=== PATIENT | male | born 1970 | race Caucasian/White ===

== ENCOUNTER 2019-06-29 02:20 | Observation (INO) | payer OTHER ==
[~2019-06-29] VITALS: Ht 177.8 cm; Wt 104.5 kg
[2019-06-29] MEDS ORDERED: TRAMADOL HYDROC50 MG PO ×2 (03:10→03:14)
[2019-06-29] MEDS ORDERED: ZESTRIL10 M1 PO ×2 (03:18→03:56)
[2019-06-29 03:48] LABS: HEMATOCRIT 31.1 % (39.0-50.0); HEMOGLOBIN 10.8 g/dl (14.0-18.0); IMMATURE GRANULOCYTES 0.5 % (0.0-5.0); MEAN CELL VOLUME 92.8 fL CALC (80.0-100.0); MEAN CORPUSCULAR HGB 32.2 pG CALC (26.0-32.0); MEAN CORPUSCULAR HGB CONC 34.7 g/L CALC (32.0-36.0); NEUT# 3.21 thou/uL (1.82-7.42); RED BLOOD COUNT 3.35 mill/uL (4.70-6.10); RED CELL DISTRI WIDTH 14.2 % (11.5-15.5)
[2019-06-29 03:55] LABS: ALBUMIN 4.2 g/dL (3.2-5.0); ALKALINE PHOSPHATASE 141 u/l (38-126); AMYLASE 48 u/l (30-110); ANION GAP 13 (6-22 (CALC)); BILIRUBIN, TOTAL 0.5 mg/dL (0.0-1.4); BUN 18 mg/dL (9-20); BUN/CREATININE RATIO 20 (12-20 (CALC)); CARBON DIOXIDE 24 mmol/l (22-30); CHLORIDE 104 mmol/l (95-108); CREATININE 0.9 mg/dL (0.7-1.3); GFR > 60 ML/MIN (>=60 (CALC)); GFR FOR AFR.AMER. > 60 ML/MIN (>=60 (CALC)); LIPASE 62 u/l (23-300); SGOT/AST 24 u/l (17-59); SODIUM 138 mmol/l (137-146); TOTAL PROTEIN 7.6 g/dL (6.3-8.2)
[2019-06-29] MEDS ORDERED: NOVOLIN 70/30 F1 INJ SC (03:59)
[2019-06-29] MEDS ORDERED: CLARITIN10 M2 PO (04:05)
[2019-06-29 04:08] LABS: MYOGLOBIN 58 ng/mL (0 - 121)
[2019-06-29] MEDS ORDERED: GABAPENTIN250 MG/5 M PO (04:08)
[2019-06-29] MEDS ORDERED: ECOTRIN LOW STR81 MG PO (04:09)
[2019-06-29] MEDS ORDERED: HYDROCHLOROT12.5 MG PO (04:10)
[2019-06-29] MEDS ORDERED: METFORMIN1000 MG PO (04:13)
[2019-06-29] MEDS ORDERED: NIFEDIPINE ER60 MG PO (04:15)
[2019-06-29] MEDS ORDERED: GLIPIZIDE10 MG PO (04:16)
[2019-06-29] MEDS ORDERED: CARVEDILOL25 MG PO (04:17)
[2019-06-29] MEDS ORDERED: LOPID600 MG PO (04:17)
[2019-06-29] MEDS ORDERED: CARBAMAZEPIN200 M2 PO (04:18)
[2019-06-29] MEDS ORDERED: LAMICTAL100 M1 PO (04:19)
[2019-06-29] MEDS ORDERED: DIPHENHYDRAM50 M2 PO (04:20)
[2019-06-29] MEDS ORDERED: SERTRALINE100 MG PO (04:21)
[2019-06-29] MEDS ORDERED: BUSPIRONE15 MG PO (04:23)
[2019-06-29 04:43] LABS: URINE BILIRUBIN - DIPSTICK SMALL (NEGATIVE); URINE BLOOD DIPSTICK TRACE-INTACT (NEGATIVE); URINE COLOR YELLOW; URINE GLUCOSE - DIPSTICK 100 mg/dL (NEGATIVE); URINE KETONE TRACE mg/dL (NEGATIVE); URINE LEUK ESTERASE NEGATIVE (NEGATIVE); URINE NITRITE - DIPSTICK NEGATIVE (Negative); URINE PH 5.5 (4.5-8.0); URINE PROTEIN - DIPSTICK >=300 mg/dL (NEG-TRACE); URINE SPECIFIC GRAVITY 1.025; URINE UROBILINOGEN - DIPSTICK 0.2 E.U./dL (0.2)
[2019-06-29 04:44] LABS: URINE EPITHELIAL CELLS FEW EPI/hpf (0-FEW); URINE MUCUS MODERATE hpf (NONE-FEW); URINE RBC 0-2 RBC/hpf (0-5)
[2019-06-29 04:45] LABS: BARBITURATES NEGATIVE (NEGATIVE); COCAINE NEGATIVE (NEGATIVE); METHADONE NEGATIVE (NEGATIVE); OXCYCODONE NEGATIVE (NEGATIVE); TETRAHYDROCANNABIONOL NEGATIVE (NEGATIVE)
[2019-06-29 04:52] LABS: TRICYLIC ANTIDEPRESSANTS POSITIVE (NEGATIVE)
[2019-06-29 07:40] VITALS: BP 166/66
[2019-06-29 11:26] VITALS: BP 151/88
[2019-06-29 14:35] VITALS: BP 194/111
[2019-06-29 19:37] VITALS: BP 204/110
[2019-06-30 00:54] VITALS: BP 156/93
[2019-06-30 03:42] VITALS: BP 144/87
[2019-06-30 07:36] VITALS: BP 141/88
[2019-06-30 11:25] VITALS: BP 113/63
[2019-06-30 15:53] VITALS: BP 128/78
[2019-06-30 19:40] VITALS: BP 150/83
[2019-07-01] VITALS: BP 153/89
[2019-07-01 04:00] VITALS: BP 148/96
[2019-07-01 05:57] LABS: HEMATOCRIT 31.3 % (39.0-50.0); HEMOGLOBIN 10.9 g/dl (14.0-18.0); MEAN CELL VOLUME 91.5 fL CALC (80.0-100.0); MEAN CORPUSCULAR HGB 31.9 pG CALC (26.0-32.0); MEAN CORPUSCULAR HGB CONC 34.8 g/L CALC (32.0-36.0); RED BLOOD COUNT 3.42 mill/uL (4.70-6.10); RED CELL DISTRI WIDTH 14.3 % (11.5-15.5)
[2019-07-01 06:17] LABS: ANION GAP 14 (6-22 (CALC)); BUN 17 mg/dL (9-20); BUN/CREATININE RATIO 25 (12-20 (CALC)); CARBON DIOXIDE 26 mmol/l (22-30); CHLORIDE 101 mmol/l (95-108); CREATININE 0.7 mg/dL (0.7-1.3); GFR > 60 ML/MIN (>=60 (CALC)); GFR FOR AFR.AMER. > 60 ML/MIN (>=60 (CALC)); POTASSIUM 4.5 mmol/l (3.5-5.1); SODIUM 136 mmol/l (137-146)
[2019-07-01 07:32] VITALS: BP 166/95
[2019-07-01 10:45] VITALS: BP 146/84
[2019-07-01] MEDS ORDERED: MEDDOSEPAK PO (11:26)
[2019-07-01] MEDS ORDERED: ZITHROMAX250 MG PO (11:26)
[2019-07-01] MEDS ORDERED: ISOSORB MONO30 MG PO (11:26)
== END 2019-07-01 14:00 | disposition designated cancer center or children's hospital (05) | DRG 313 ==
LOC: ED 02:20 → ED-I 04:49 → ED 06:11 → ED-I 06:12 → MS2 06:25
PROVIDERS: Emergency Medicine; Internal Medicine; ADMIT Internal Medicine; ATTEND Internal Medicine
DX: R07.89 Other chest pain (principal); I16.0 Hypertensive urgency; I10 Essential (primary) hypertension; D61.818 Other pancytopenia; J43.9 Emphysema, unspecified; E11.42 Type 2 diabetes mellitus with diabetic polyneuropathy; E11.65 Type 2 diabetes mellitus with hyperglycemia; R91.1 Solitary pulmonary nodule; E78.5 Hyperlipidemia, unspecified; Z79.4 Long term (current) use of insulin; Z86.74 Personal history of sudden cardiac arrest
CPT/HCPCS: G0328; G0378; Q9967

== ENCOUNTER 2023-07-23 17:43 | Emergency (ER) | payer OTHER ==
[~2023-07-23] VITALS: Ht 177.8 cm; Wt 104.0 kg
[2023-07-23] VITALS (65 sets, daily range): BP systolic 91–145; BP diastolic 46–90
[~2023-07-23 17:43] MED LIST: BUSPIRONE15 MG PO; CARBAMAZEPIN200 M2 PO; CARVEDILOL25 MG PO; CLARITIN10 M2 PO; DIPHENHYDRAM50 M2 PO; ECOTRIN LOW STR81 MG PO; GABAPENTIN250 MG/5 M PO; GLIPIZIDE10 MG PO; HYDROCHLOROT12.5 MG PO; ISOSORB MONO30 MG PO; LAMICTAL100 M1 PO; LOPID600 MG PO; MEDDOSEPAK PO; METFORMIN1000 MG PO; NIFEDIPINE ER60 MG PO; NOVOLIN 70/30 F1 INJ SC; SERTRALINE100 MG PO; TRAMADOL HYDROC50 MG PO; ZESTRIL10 M1 PO; ZITHROMAX250 MG PO
[2023-07-23 18:17] LABS: BASO% 0.2 % (0-3); EOS% 1.8 % (0-8); HEMATOCRIT 39.3 % (39.0-50.0); HEMOGLOBIN 12.7 g/dl (14.0-18.0); IMMATURE GRANULOCYTES 6.2 % (0.0-5.0); LYMPH% 14.7 % (15-41); MEAN CELL VOLUME 97.3 fL CALC (80.0-100.0); MEAN CORPUSCULAR HGB 31.4 pG CALC (26.0-32.0); MEAN CORPUSCULAR HGB CONC 32.3 g/dL CAL (32.0-36.0); MONO% 3.8 % (2-13); NEUT# 13.54 thou/uL (1.82-7.42); NEUT% 73.3 % (42-76); RED BLOOD COUNT 4.04 mill/uL (4.70-6.10); RED CELL DISTRI WIDTH 13.3 % (11.5-15.5)
[2023-07-23 18:28] LABS: ALBUMIN 3.7 g/dL (3.2-5.0); POTASSIUM 4.6 mmol/l (3.5-5.1)
[2023-07-23 18:33] LABS: BILIRUBIN, TOTAL 0.5 mg/dL (0.2-1.3); CREATININE 1.9 mg/dL (0.7-1.3)
[2023-07-23 20:36] LABS: URINE BILIRUBIN - DIPSTICK Negative (NEGATIVE); URINE BLOOD DIPSTICK Moderate (NEGATIVE); URINE GLUCOSE - DIPSTICK 500 mg/dL (NEGATIVE); URINE KETONE Negative (NEGATIVE); URINE LEUK ESTERASE Negative (NEGATIVE); URINE NITRITE - DIPSTICK Negative (Negative); URINE PH 5.5 (4.5-8.0); URINE PROTEIN - DIPSTICK >=300 mg/dL (NEG-TRACE); URINE SPECIFIC GRAVITY 1.025
[2023-07-23 20:38] LABS: URINE COLOR Yellow
[2023-07-23] MEDS ORDERED: MAXZIDE-25MG1 COMBO PO (20:53)
[2023-07-23] MEDS ORDERED: METFORMIN500 M2 PO (20:53)
[2023-07-23] MEDS ORDERED: HUMULIN R SC ×2 (20:54→20:55)
[2023-07-23] MEDS ORDERED: NEURONTIN300 MG PO (20:55)
[2023-07-23] MEDS ORDERED: LANTUS100 UNIT SC (20:56)
[2023-07-23] MEDS ORDERED: TRIGLIDE160 MG PO (20:56)
[2023-07-23] MEDS ORDERED: CARBAMAZEPINE200 MG PO (20:58)
[2023-07-23] MEDS ORDERED: SINEQUAN50 MG PO (20:58)
[2023-07-23] MEDS ORDERED: CLONIDINE0.2 MG PO (20:59)
[2023-07-23] MEDS ORDERED: EZETIMIBE10 MG PO (20:59)
[2023-07-23] MEDS ORDERED: LISINOPRIL20 M1 PO (20:59)
[2023-07-23] MEDS ORDERED: AMLODIPINE BESY10 MG PO (21:00)
[2023-07-23] MEDS ORDERED: ATORVASTATIN CA10 MG PO (21:00)
[2023-07-23] MEDS ORDERED: OMEGA 31000 MG PO (21:00)
[2023-07-24 00:03] VITALS: BP 120/79
[2023-07-24 00:15] VITALS: BP 120/79
== END 2023-07-24 00:15 | disposition short-term general hospital (02) | DRG 296 ==
LOC: ED 17:43
PROVIDERS: Family Medicine
PROC: 0T9B70Z Drainage of Bladder with Drainage Device, Via Natural or Artificial Opening (ICD-10-PCS; principal; 2023-07-23)
PROC: 02HV33Z Insertion of Infusion Device into Superior Vena Cava, Percutaneous Approach (ICD-10-PCS; 2023-07-23)
PROC: 3E043XZ Introduction of Vasopressor into Central Vein, Percutaneous Approach (ICD-10-PCS; 2023-07-23)
DX: I46.9 Cardiac arrest, cause unspecified (principal); A41.9 Sepsis, unspecified organism; J18.9 Pneumonia, unspecified organism; I49.01 Ventricular fibrillation; E11.40 Type 2 diabetes mellitus with diabetic neuropathy, unspecified
CPT/HCPCS: J0282; Q9967